=== PATIENT | male | born 1980 | race Caucasian/White ===

== ENCOUNTER 2019-03-25 21:42 | Emergency (ER) | payer SELFPAY ==
[~2019-03-25] VITALS: Ht 175.3 cm; Wt 73.0 kg
[2019-03-25] MEDS ORDERED: IBUPROFEN 600MG TABLET PO STA (22:21)
[2019-03-26 01:17] VITALS: BP 131/110
== END 2019-03-26 01:20 | disposition home or self-care (01) ==
LOC: ER 22:34
DX: M25.561 Pain in right knee (principal); M25.571 Pain in right ankle and joints of right foot; V03.99XA Pedestrian with other conveyance injured in collision with car, pick-up truck or van, unspecified whether traffic or nontraffic accident, initial encounter; Y93.9 Activity, unspecified; Y92.410 Unspecified street and highway as the place of occurrence of the external cause
CPT/HCPCS: 73560; 73590; 73610; 99283